=== PATIENT | female | born 1965 | race Caucasian/White ===

== ENCOUNTER 2020-06-19 20:31 | Emergency (ER) | payer OTHER ==
[2020-06-19 22:46] LABS: BASOPHIL 0.2 % (0-2); EOSINOPHIL 0.9 % (0-5); HCT 41.4 % (37.0-47.0); HGB 14.3 g/dl (12.5-16.0); LYMPHOCYTE 23.6 % (15-48); MCH 32.6 pg (25.0-31.0); MCHC 34.5 g/dL (32.0-36.0); MCV 94.3 fL (78.0-100.0); MONOCYTE 5.9 % (0-12); MPV 10.9 fL (6.0-9.5); NEUTROPHIL 69.3 % (41-80); NRBC 0; PLT 272 K/uL (150-400); RBC 4.39 M/uL (4.20-5.40); RDW 12.2 % (11.5-14.0); WBC 8.5 K/uL (4.0-10.5)
[2020-06-19 22:47] LABS: BILIRUBIN NEGATIVE (NEGATIVE); BLOOD NEGATIVE Ery/uL (NEGATIVE); CLARITY CLEAR (CLEAR); COLOR YELLOW (YELLOW); GLUCOSE (U) NORMAL (NORMAL); LEUKOCYTES NEGATIVE Leu/uL (NEGATIVE); NITRITE NEGATIVE (NEGATIVE); PROTEIN NEGATIVE (NEGATIVE); SPECIFIC GRAVITY >=1.030 (1.001-1.030); UROBILINOGEN 0.2 mg/dL (0.2-1.0); pH 5.5 (5.0-9.0)
[2020-06-19 22:56] LABS: ALBUMIN 4.6 g/dL (3.4-5.0); BILIRUBIN - TOTAL 0.5 mg/dL (0.2-1.0); BUN/CREAT RATIO (CALC) 18.4 RATIO; CREATININE 0.98 mg/dL (0.51-0.95); GLOBULIN (CALCULATION) 3.1 g/dL; POTASSIUM 3.8 mmol/L (3.5-5.1); TOTAL PROTEIN 7.7 g/dL (6.4-8.2)
[2020-06-20] MEDS ORDERED: BENTYL10 MG PO (01:07)
== END 2020-06-20 01:14 | disposition home or self-care (01) ==
LOC: FER 20:31
PROVIDERS: Emergency Medicine Emergency Medical Services
DX: R10.32 Left lower quadrant pain (principal); Z88.1 Allergy status to other antibiotic agents; Z88.2 Allergy status to sulfonamides
CPT/HCPCS: 36415; 80053; 81003; 83605; 84145; 85025; Q9967